=== PATIENT | female | born 2000 ===

== ENCOUNTER → 2020-12-30 15:25 | Outpatient (CLI) | payer BC, SELFPAY ==
--- NOTE | ~2020-12-30 | US_ITS ---
EXAMINATION: US pelvic complete DATE: 12/30/2020 16:14 INDICATION: Pelvic pain Comparison:No prior studies for comparison. TECHNIQUE: Multiple transabdominal and endovaginal sonographic images of the pelvis performed. FINDINGS: The uterus measures 6.8 x 2.6 x 3.2 cm. The endometrial complex measures 6 mm. The right ovary measures 3 x 1.6 x 3.6 cm and the left ovary measures 1.9 x 1 x 1.6 cm. There are sm all follicles in each ovary. Normal doppler signal in both ovaries. There is no free fluid in the pelvis. There are no abnormal masses seen on either side. IMPRESSION: 1. Unremarkable pelvic ultrasound. Reviewed, dictated and finalized at location A.
== END ==
PROVIDERS: Visit Provider Family Medicine
DX: R10.2 Pelvic and perineal pain (principal)
CPT/HCPCS: 76856